=== PATIENT | male | born 1955 | race Caucasian/White ===

== ENCOUNTER 2017-03-15 09:41 | Emergency (ER) | payer BC, OTHER ==
[2017-03-15 10:08] VITALS: BP 115/80
--- NOTE | 2017-03-15 10:47 | RAD ---
HISTORY: Ring finger dislocation and pain COMPARISONS: None VIEWS: 2, Frontal and lateral views of the fourth digit of left hand FINDINGS: BONE DENSITY: Normal. BONES: There is a bone fragment along the fourth DIP joint suggestive of fracture from the base of the distal phalanx. JOINTS: There is no arthropathy. ALIGNMENT: There is volar dislocation of distal phalanx with respect to the middle phalanx at the DIP joint SOFT TISSUES: Unremarkable. OTHER FINDINGS: None. IMPRESSION: FOURTH DIP DISLOCATION WITH PROBABLE FRACTURE OF THE BASE OF THE DISTAL PHALANX
[2017-03-15] MEDS ORDERED: Ibuprofen TAB* 600 MG PO ONE (11:19)
--- NOTE | 2017-03-15 11:23 | UC ---
Hand/Wrist HPI - History Of Current Complaint Chief Complaint: UCUpperExtremity Stated Complaint: LEFT HAND 4TH FINGER INJURY Hx Obtained From: Patient Onset/Duration: Sudden Onset Aggravating Factor(s): Movement Alleviating Factor(s): Nothing Associated Signs And Symptoms: Positive: Negative - Allergies/Home Medications Allergies/Adverse Reactions: Allergies Allergy/AdvReac Type Severity Reaction Status Date / Time No Known Allergies Allergy Verified 03/15/17 09:49 Home Medications: Home Medications Cholecalciferol [D 1000] 1,000 unit PO DAILY 03/15/17 [History Confirmed ] Levothyroxine TAB* [Synthroid TAB*] 50 mcg PO DAILY 03/15/17 [History Confirmed 03/15/17] Multiple Vitamin [Multivitamins] 1 cap PO DAILY 03/15/17 [History Confirmed 12/23] PMH/Surg Hx/FS Hx/Imm Hx Previously Healthy: Yes Endocrine History: Thyroid Disease - Surgical History Surgical History: Yes Surgery Procedure, Year, and Place: ROTATOR CUFF REPAIR - Family History Known Family History: Positive: None - Social History Occupation: Employed Full-time Lives: With Family Alcohol Use: None Substance Use Type: None Smoking Status (MU): Never Smoked Tobacco Review of Systems Musculoskeletal: Arthralgia, Decreased ROM Is Patient Immunocompromised?: No All Other Systems Reviewed And Are Negative: Yes Physical Exam Triage Information Reviewed: Yes Appearance: Well-Appearing, No Pain Distress, Well-Nourished Vital Signs: Initial Vital Signs Temp 98 F 03/15/17 09:51 Pulse 79 03/15/17 09:51 Resp 16 03/15/17 09:51 BP 115/80 03/15/17 09:51 Pulse Ox 97 03/15/17 09:51 Vital Signs Reviewed: Yes Respiratory Exam: Normal Cardiovascular Exam: Normal Musculoskeletal: Positive: ROM Limited @, Other: - 4TH LEFT FINGER FLEXION POSITION WITH SWELING AT THE DIP Neurological Exam: Normal Psychological Exam: Normal Skin Exam: Normal Hand/Wrist Course/Dx - Course Course Of Treatment: DISLOCATION WITH 4TH PIP FRACTURE -- REFERRED TO [facility] AT THIS TIME AND HE DESIRES TO GO TO [facility] -- SPOKE WITH TRIAGE TRANSFER NURSE AND PATIENT TO GO TO [facility] LIKELY HE WILL GO DIRECTLY TO [facility] AND STATES HE KNOWS EXACTLY WHERE THAT IS - Differential Dx/Diagnosis Differential Diagnosis/HQI/PQRI: Dislocation, Fracture, Sprain, Strain Provider Diagnoses: 4TH LEFT FINGER FRACTURE WITH DISLOCATION AT THE dip Discharge - Discharge Plan Condition: Good Disposition: TRANS HIGHER LVL OF CARE FAC Patient Education Materials: Finger Fracture (ED) Referrals: Tee Phillip DO [Primary Care Provider] - 4 Days Additional Instructions: PLEASE GO DIRECTLY TO THE EMERGENCY ROOM AT THIS TIME [facility]ITHER [facility] ([address]) OR [facility] ([facility])
== END 2017-03-15 11:30 | disposition short-term general hospital (02) ==
LOC: UCCORT 09:41
DX: S62.635A Displaced fracture of distal phalanx of left ring finger, initial encounter for closed fracture (principal); X58.XXXA Exposure to other specified factors, initial encounter; Y92.9 Unspecified place or not applicable
CPT/HCPCS: 73140; 99213; A9270-GY; G0463